=== PATIENT | female | born 1940 | race Caucasian/White ===

== ENCOUNTER → 2017-11-28 | Outpatient (CLI) | payer OTHER ==
[~2017-11-28] MED LIST: CIPR500 PO; CODACE30 PO; DOCU100 PO; GENUVIA PO; GLIM4 PO; HYDACE5 PO; METF500 PO; METR500 PO; ONDA4 PO; OXYACE5T PO; PROM25 PO
== END | disposition home or self-care (01) ==
LOC: LAB 14:15 → LAB SHORT 14:15
DX: L30.9 Dermatitis, unspecified (principal)
CPT/HCPCS: 87220

== ENCOUNTER → 2019-11-15 | Outpatient (CLI) | payer OTHER | END | disposition home or self-care (01) | LOC: LAB SRC 08:20 → LAB SHORT 08:20 | DX: E11.9 Type 2 diabetes mellitus without complications (principal) | CPT/HCPCS: 82043 ==

== ENCOUNTER → 2020-09-22 | Outpatient (CLI) | payer OTHER | END | disposition home or self-care (01) | LOC: LAB SRC 07:45 → LAB SHORT 07:45 → LAB 07:45 | DX: E11.9 Type 2 diabetes mellitus without complications (principal) | CPT/HCPCS: 82043 ==

== ENCOUNTER → 2022-10-21 | Outpatient (CLI) | payer OTHER | END | disposition home or self-care (01) | LOC: LAB SHORT 07:00 → LAB 07:00 | DX: E11.51 Type 2 diabetes mellitus with diabetic peripheral angiopathy without gangrene (principal); Z79.4 Long term (current) use of insulin | CPT/HCPCS: 82043 ==

== ENCOUNTER 2023-09-29 13:29 | Inpatient (IN) | payer OTHER ==
[~2023-09-29] VITALS: Ht 157.5 cm; Wt 56.3 kg
[2023-09-29] MEDS ORDERED: Ketamine HCl 100 MG / ML 5ML Vial IV ONE (14:20)
[2023-09-29] MEDS ORDERED: Propofol 10mg/ml 20 ml Vial (Procedural) IV SCH (14:20)
[2023-09-29] MEDS ORDERED: Ondansetron HCl 2 MG / ML 2ML Vial IV ONE (14:40)
[2023-09-29] MEDS ORDERED: NS 1,000 ML IV SCH ×2 (14:40→18:10)
[2023-09-29 14:46] LABS: BASOPHILS ABSOLUTE AUTO 0.05 K/mm3 (0.00-0.23); BASOPHILS PERCENT AUTO 0 % (0-2); EOSINOPHILS ABSOLUTE AUTO 0.07 K/mm3 (0.00-0.68); EOSINOPHILS PERCENT AUTO 1 % (0-6); Hemoglobin 13.7 g/dL (11.5-16.0); IMMATURE GRAN PERCENT AUTO 1 % (0-1); LYMPHOCYTES ABSOLUTE AUTO 1.18 K/mm3 (0.84-5.20); LYMPHOCYTES PERCENT AUTO 8 % (21-46); MONOCYTES ABSOLUTE AUTO 0.59 K/mm3 (0.16-1.47); MONOCYTES PERCENT AUTO 4 % (4-13); Mean Corpuscular HGB 28.6 pg (26.0-34.0); Mean Corpuscular HGB Conc 33.4 g/dL (31.5-36.5); Mean Corpuscular Volume 86 fL (80-100); Mean Platelet Volume 9.2 fL (9.1-12.4); NEUTROPHILS ABSOLUTE AUTO 13.49 K/mm3 (1.96-9.15); NEUTROPHILS PERCENT AUTO 87 % (41-73); Platelet Count 241 K/mm3 (150-400); RDW Coefficient Variation 15.4 % (11.7-14.2); RDW Standard Deviation 47.1 fL (35.1-46.3); Red Blood Cell Count 4.79 M/mm3 (3.80-5.20); White Blood Cell Count 15.48 K/mm3 (4.00-11.30)
[2023-09-29 15:06] LABS: Albumin, Blood 3.8 g/dL (3.4-5.0); Bilirubin, Total 0.5 mg/dL (0.1-1.0); Bun/Creatinine Ratio 23.1 (12.0-20.0); Calcium, Blood 10.8 mg/dL (8.5-10.1); Creatinine, Blood 0.87 mg/dL (0.40-1.00); Globulin, Blood 3.8 g/dL (2.2-4.0); Magnesium, Blood 1.7 mg/dL (1.6-2.4); Potassium, Blood 4.1 mmol/L (3.5-5.5); Total Protein, Blood 7.6 g/dL (6.4-8.2)
[2023-09-29] MEDS ORDERED: FentaNYL Citrate 50 MCG/ML 2 ML Injection IV ONE (15:15)
[2023-09-29 17:30] LABS: Source, Urine Clean Catch
[2023-09-29 17:34] LABS: Appearance, Urine Clear (Clear); Bilirubin, Urine Neg (Neg); Blood, Urine Neg (Neg); Color, Urine Yellow (P-Yellow); Glucose Qualitative, Urine Neg (Neg); Ketones, Urine Neg (Neg); Leukocyte Esterase, Urine Neg (Neg); Nitrite, Urine Neg (Neg); Protein, Urine Neg (Neg); Specific Gravity, Urine 1.025 (1.003-1.022); Urobilinogen, Urine NORM (Normal)
[2023-09-29] MEDS ORDERED: FentaNYL Citrate 50 MCG/ML 2 ML Injection IV PRN (18:05)
[2023-09-29] MEDS ORDERED: Ondansetron HCl 2 MG / ML 2ML Vial IV PRN (18:10)
[2023-09-29] MEDS ORDERED: Insulin Glargine-Yfgn 100 Unit/mL 3 ML SYR SC SCH (19:00)
[2023-09-29] MEDS ORDERED: Sennosides 8.6 MG Tab PO SCH (21:00)
[2023-09-29 21:32] VITALS: BP 137/72
[2023-09-29] MEDS ORDERED: TRESIBA FL100 UNIT/2 SC (21:36)
--- NOTE | 2023-09-29 22:27 | NUR ---
ARRIVAL PT NEW ADMIT FROM ER W/ L ANKLE FX. SPLINT IN PLACE, CAP REFILL <3 SECONDS AND PT REPORTS FULL SENSATION. CAN MOVE TOES ON COMMAND. PT REPORTS NO PAIN W/NO MOVEMENT BUT 8/10 PAIN W/ MOVEMENT. PT REPORTING L RIB PAIN, WHEN VISUALIZED LIGHT BRUISING NOTED BUT OTHERWISE NO ACUTE FINDINGS. PT REPORTS NOT HITTING HER HEAD BUT EXPERIENCED SYNCOPE. VSS, TELE READS SR 90'S. PT RESTING IN BED W/ WATER AVAILABLE. DENIES WANTING PAIN OR NAUSEA MEDICATION AT THIS TIME, PLAN TO BE NPO AT 0000.
--- NOTE | 2023-09-30 00:41 | NUR ---
PATIENT CONCERNS PATIENT REPORTS HAVING DIPTHERIA A YOUNG CHILD AND REPORTS ESOPHAGEAL ISSUES HER WHOLE LIFE, REPORTS CHOKING "REGULARLY". PT EXPRESSES SIGNIFIGANT ANXIETY OVER POSSIBLE INTUBATION TOMORROW. EDUCATED THE PT THAT THE ANESTHESIOLOGIST WOULD SPEAK WITH HER AND THAT I WOULD PASS THIS INFORMATION ONTO DAY SHIFT
[2023-09-30 02:34] VITALS: BP 149/81
--- NOTE | 2023-09-30 04:23 | NUR ---
SHIFT SUMMARY NO ACUTE EVENTS SINCE ARRIVING TO THE FLOOR, PT VOIDED ONCE INTO BRIEF D/T PUREWICK FAILURE. REQUIRING IV PAIN MEDICATION Q2. PT IS EXPERIENCING SIGNIFIGANT ANXIETY BUT FINDS COMFORT IN TALKING TO STAFF. PLEASENT AND COOPERATIVE. HAS BEEN NPO SINCE 0000 IN ANTICIPATION FOR SURGERY TODAY. CAP REFILL IS BRISK AND SENSATION REMAINS INTACT AT THIS TIME.
[2023-09-30 06:36] LABS: BASOPHILS ABSOLUTE AUTO 0.04 K/mm3 (0.00-0.23); BASOPHILS PERCENT AUTO 0 % (0-2); EOSINOPHILS ABSOLUTE AUTO 0.06 K/mm3 (0.00-0.68); EOSINOPHILS PERCENT AUTO 1 % (0-6); Hemoglobin 12.9 g/dL (11.5-16.0); IMMATURE GRAN ABSOLUTE AUTO 0.03 K/mm3 (0.00-0.10); IMMATURE GRAN PERCENT AUTO 0 % (0-1); LYMPHOCYTES ABSOLUTE AUTO 1.48 K/mm3 (0.84-5.20); LYMPHOCYTES PERCENT AUTO 13 % (21-46); MONOCYTES ABSOLUTE AUTO 0.74 K/mm3 (0.16-1.47); MONOCYTES PERCENT AUTO 7 % (4-13); Mean Corpuscular HGB 28.2 pg (26.0-34.0); Mean Corpuscular HGB Conc 33.1 g/dL (31.5-36.5); Mean Corpuscular Volume 85 fL (80-100); NEUTROPHILS ABSOLUTE AUTO 8.82 K/mm3 (1.96-9.15); NEUTROPHILS PERCENT AUTO 79 % (41-73); Platelet Count 228 K/mm3 (150-400); RDW Coefficient Variation 15.3 % (11.7-14.2); RDW Standard Deviation 47.3 fL (35.1-46.3); Red Blood Cell Count 4.57 M/mm3 (3.80-5.20); White Blood Cell Count 11.17 K/mm3 (4.00-11.30)
[2023-09-30 07:05] LABS: Bun/Creatinine Ratio 21.8 (12.0-20.0); Calcium, Blood 9.5 mg/dL (8.5-10.1); Creatinine, Blood 0.78 mg/dL (0.40-1.00); Potassium, Blood 4.3 mmol/L (3.5-5.5)
[2023-09-30 08:21] VITALS: BP 147/75
--- NOTE | 2023-09-30 13:31 | NUR ---
"Spiritual Care Visit | Pt. Request Pt. is awake in bed and welcomes my visit. Pt. is pleasant and Spouse Mitch is at bedside. Facilitate a life review and establish rapport. Listen with interest and engagement. Pt. displays evidence of having great scott, but is unsettled about the impact of medication for her planned operation on Tuesday. Prayed for the Pt. Pt. verbalized gratitude for the spiritual care visit and requested this assistant manager/embalmer to pray for her tomorrow during her procedure."
[2023-09-30 14:53] VITALS: BP 151/72
[2023-09-30] MEDS ORDERED: Insulin Human Lispro 100 Units/ML 3ML Syringe SC SCH ×2 (17:30)
--- NOTE | 2023-09-30 17:44 | NUR ---
SHIFT SUMMARY PT ADMITTED FOR L ANKLE FRACTURE. ANKLE REDUCED AND SPLINTED IN THE ED. MARCO ANTONIO WRAP TO L ANKLE IS CDI. PT WAS SUPPOSED TO HAVE SURGERY TODAY BUT IT HAS BEEN POSTPONED DUE TO NEEDING TO ORDER EQUIPMENT THAT IS COMPATIBLE WITH THE PT'S ALLERGIES. PT TREATED PER EMR FOR PAIN AND ON 2 LITERS O2/CONT. BIOX DUE TO DESATING WITH PAIN MEDICATION. PT IS BEDREST AND USING A PUREWICK. NPO AT MIDNIGHT FOR SURGERY TOMORROW.
--- NOTE | 2023-09-30 19:30 | NUR ---
DURING BEDSIDE REPORT I ATTEMPTED TO CHECK CIRCULATION TO PTS TOES SHE C/O INCREASED PAIN.PT UPSET,AND REFUSED ME TO CHECK. STATED I WAS NOT TO TOUCH HER LEG.I DISCUSSED RISKS WITH PT REGARDING INABILITY TO CONFIRM CIRCULATION. ADVISED SHE WOULD BE MEDICATED FOR PAIN, BUT NURSING WOULD STILL NEED TO CK CIRCULATION FOR SAFETY.PT INITIALLY REFUSED, BUT DID CHANGE MIND AND AGREE TO LET DAY RN AND THIS RN CHECK REFILL TO TOES.
[2023-09-30 19:42] VITALS: BP 148/69
--- NOTE | 2023-09-30 20:40 | NUR ---
BOILER WATER TESTER REPORTED PT C/O PAIN AND NAUSEA AT 2009. I MED PT FOR PAIN AT 2014, BUT PT REFUSED ZOFRAN.PT STATED SHE WAS "SICK" ,BUT VERB SHE DID NOT MEAN NAUSEA. PT C/O FEELING LIKE LEG HAD SWELLING.I OFFERED ICE IF PT WOULD ALLOW IT AND DISCUSSED REASONING,ALSO CONSIDERED ASKING FOR 1 TIME DOSE OF TORADOL WHILE I REVIEWED CREAT AND GFR, THEN ASKED PT ABOUT ANY ALLERGIES TO IBUPROFEN FOR SAFETY DUE TO PTS MULTIPLE ALLERGIES. PT REPORTED HAVING ALLERGY TO IBUPROFEN,WHICH WAS NOT ON ALLERGY LIST.PT STATED REACTION WAS "SEVERE" BUT COULD NOT VERB SPECIFIC REACTION.PT ALSO STATED SHE HAD MANY OTHERS, BUT COULD NOT REMEMBER THEM. PT GOING TO OR IN AM,I ATTEMPTED TO OBTAIN LIST FORM OTHER SOURCE.PT STATED HER MIGHT KNOW, BUT WE WERE UNABLE TO REACH HIM BY PHONE.I ASKED ABOUT PT PHARMACY AND PT STATED OUT OF TOWN PH[facility] AND NEWLY ESTABLISHING WITH JEY,I DISCUSSED THE SAFETY RISK OF NOT HAVING ACCURATE ALLERGY LIST FOR OR AND PT GOT UPSET,RAISING HER VOICE TELLING ME HER DOCTOR KNOWS HER LIST AND HE WILL BE DOING SURGERY. PT REFUSING TO TALK OF IT FURTHER,CALLED BOILER WATER TESTER TO ROOM FOR ASSIST IN CALMING PT.PT CONTINUED TO RAISE VOICE SAYING MY QUESTIONS HAVE "SCARED THE SHIT OUT OF " HER AND STATED SHE WOULD NOT ALLOW ME TO CANCEL HER SURGERY.BOILER WATER TESTER AND NURSE ATTEMPTED TO EXPLAIN TO PT HAD NO AUTHORITY TO CANCEL SURGERY AND WERE NOT ATTEMPTING TO, BUT NEEDED ALLERGIES FOR SAAFETY AND I WAS JUST DOING MY JOB. PT DEMANDED US TO LEAVE ROOM AND OBTAIN HER A REPLACEMENT NURSE AND THREATENED SHE WOULD BE CALLING HER NATUROPATHIC DOCTOR.WE LEFT ROOM AND CALLED NURSING MANAGING DIRECTOR ATLAS NASIR TO ROOM TO SPEAK WITH PT. BROOK MOREIRA ASSUMED CARE.
--- NOTE | 2023-09-30 21:00 | NUR ---
ASSUMPTION OF CARE. THIS RN ASSUMED CARE OF PT AT 2100. PT ANXIOUS AT THIS TIME AND THIS RN PROVIDED REASSURANCE AND THERAAPEUTIC COMMUNICATION. CALL LIGHT IN REACH.
[2023-10-01] VITALS (15 sets, daily range): BP systolic 141–166; BP diastolic 67–90
--- NOTE | 2023-10-01 08:02 | NUR ---
SHIFT SUMMARY NOC. PT TO HAVE SURGERY TODAY FOR L ANKLE FX REPAIR. SPLINT IN PLACE WITH MARCO ANTONIO WRAP. TOES WARM, CAP REFILL BRISK, AND PT ABLE TO WIGGLE TOES. PT VERY PAINFUL WITH MOVEMENT AND NEEDING PAIN MED Q 2 HOURS. PT MEDICATED FOR NAUSEA X1 WITH IMPROVEMENT, NO VOMITING EPISODES. PT REPORTS RELIEF WITH MEDICATION. DESAT NOTED WITH PAIN MEDS BUT RETURNS WITH O2 VIA NC AND COACHING FOR DEEP BREATHS. PT ANXIOUS AT START OF ASSUMPTION OF CARE BUT ANXIETY SIGNIFICANTLY IMPROVED WITH THERAPEUTIC COMMUNICATION AND RAPPORT BUILDING. PT VOIDING URINE VIA PUREWICK. PT DECLINED LONG ACTING BEDTIME INSULIN D/T NPO STATUS FOR SURGERY. PT NPO SINCE 0000. PT RESTED WITH EYES CLOSED AND CALL LIGHT IN REACH.
[2023-10-01] MEDS ORDERED: Bupivacaine 0.5% HCl 5 MG/ML 30MLVIAL ONE (08:43)
[2023-10-01] MEDS ORDERED: HYDROmorphone HCl/Pf 1MG SYR IV PRN (09:25)
[2023-10-01] MEDS ORDERED: FentaNYL Citrate 50 MCG/ML 2 ML Injection IV PRN (09:25)
[2023-10-01] MEDS ORDERED: Albuterol 2.5 MG/3 ML VIAL INH PRN (09:30)
[2023-10-01] MEDS ORDERED: Droperidol 5 mg/2 ml Vial IV PRN (09:30)
[2023-10-01] MEDS ORDERED: propofoL 20 ML IV ONE (10:00)
[2023-10-01] MEDS ORDERED: FentaNYL Citrate 50 MCG/ML 2 ML Injection ONE ×2 (10:00→11:08)
[2023-10-01] MEDS ORDERED: Lidocaine HCl 2% 20 ML MDV ONE (10:01)
[2023-10-01] MEDS ORDERED: Dexamethasone Sod Phos 10 MG/ML 1ML VIAL ONE (10:16)
[2023-10-01] MEDS ORDERED: Ondansetron HCl 2 MG / ML 2ML Vial ONE (10:16)
[2023-10-01] MEDS ORDERED: Ketorolac Tromethamine 30mg Vial ONE (10:16)
[2023-10-01] MEDS ORDERED: CeFAZolin Sodium 1000 mg Vial ONE (10:24)
--- NOTE | 2023-10-01 10:43 | NUR ---
10/01/23 1043 Sachin Humphrey 2GRAMS IV GIVEN TO PT BY DR RODRIGUEZ.
[2023-10-01] MEDS ORDERED: Droperidol 5 mg/2 ml Vial ONE (11:44)
--- NOTE | 2023-10-01 12:27 | NUR ---
PT ARRIVED BACK TO ROOM FROM PACU AT 1205. PT SLEEPING BUT WAKES WHEN SPOKEN TO. PT ON 4L O2 VIA NC. PT BRIEFLY REMOVED OXYGEN WHEN STAFF WAS OUT OF THE ROOM. WHILE ON RA O2 SATURATION DROPPED TO 76%. PT IS ON A CONTINUOUS PULSE OXIMETER. FABIANA BERMUDEZ PLACED NASAL CANNULA BACK ON PT, WOKE HER, INSTRUCTED HER TO BREATHE DEEPLY AND NOTIFIED THIS RN. PT'S O2 SATURATION RETURNED TO 94-96% AFTER PT WAS PLACED BACK ON 4L 02. CALL LIGHT WITHIN REACH. BED ALARM ON.
[2023-10-01] MEDS ORDERED: OxyCODONE HCL 5 MG TAB PO PRN (14:55)
[2023-10-01] MEDS ORDERED: DiphenhydrAMINE HCL 25 MG Cap PO PRN (14:55)
[2023-10-01] MEDS ORDERED: Acetaminophen 325 MG TABLET PO PRN (14:55)
--- NOTE | 2023-10-01 16:51 | NUR ---
SHIFT SUMMARY PT IS POD#0 FROM L ANKLE REPAIR WITH DR. CHANDLER. PER HIV COUNSELOR PT HAD LOCAL ANESTHESIA, PAIN MANAGED. PT IS ABLE TO WIGGLE HER TOES. PT REMAINS ON 4LO2 VIA NC. DEEP BREATHING AND COUGHIN ENCOURAGED. PT USES CALL LIGHT APPROPRIATELY. PT'S IS AT THE BEDSIDE FOR SUPPORT.
[2023-10-02 03:50] LABS: BASOPHILS ABSOLUTE AUTO 0.03 K/mm3 (0.00-0.23); BASOPHILS PERCENT AUTO 0 % (0-2); EOSINOPHILS ABSOLUTE AUTO 0.02 K/mm3 (0.00-0.68); EOSINOPHILS PERCENT AUTO 0 % (0-6); Hemoglobin 12.4 g/dL (11.5-16.0); IMMATURE GRAN ABSOLUTE AUTO 0.07 K/mm3 (0.00-0.10); IMMATURE GRAN PERCENT AUTO 1 % (0-1); LYMPHOCYTES ABSOLUTE AUTO 1.74 K/mm3 (0.84-5.20); LYMPHOCYTES PERCENT AUTO 14 % (21-46); MONOCYTES ABSOLUTE AUTO 0.87 K/mm3 (0.16-1.47); MONOCYTES PERCENT AUTO 7 % (4-13); Mean Corpuscular HGB 28.5 pg (26.0-34.0); Mean Corpuscular HGB Conc 32.6 g/dL (31.5-36.5); Mean Corpuscular Volume 87 fL (80-100); Mean Platelet Volume 9.3 fL (9.1-12.4); NEUTROPHILS ABSOLUTE AUTO 9.75 K/mm3 (1.96-9.15); NEUTROPHILS PERCENT AUTO 78 % (41-73); Platelet Count 203 K/mm3 (150-400); RDW Standard Deviation 48.1 fL (35.1-46.3); Red Blood Cell Count 4.35 M/mm3 (3.80-5.20); White Blood Cell Count 12.48 K/mm3 (4.00-11.30)
[2023-10-02 04:10] LABS: Bun/Creatinine Ratio 21.8 (12.0-20.0); Calcium, Blood 8.6 mg/dL (8.5-10.1); Creatinine, Blood 0.73 mg/dL (0.40-1.00); Potassium, Blood 4.4 mmol/L (3.5-5.5)
[2023-10-02 05:36] VITALS: BP 142/72
[2023-10-02 07:23] VITALS: BP 143/71
--- NOTE | 2023-10-02 07:46 | NUR ---
SHIFT SUMMARY NOC. PT POD 1 FOR ORIF OF L ANKLE. SPLINT C/D/I. PT TITRATED DOWN TO 2 LITERS VIA N/C. TELEMETRY STATUS IN NSR IN 80S. PT HAD NO PAIN UNTIL LOCAL NERVE BLOCK WORE OFF AROUND 3AM. PT REPORTED 10/10 PAIN OXY 5MG GIVEN. PT STATED IT MADE HER FEEL "FUZZY HEADED AND DRUG OUT" PT REQUESTS TO TRIAL 2.5 MG IN FUTURE. RELAYED INFO TO ONCOMING DAY SHIFT RN. PT VOIDING URINE. PT RESTED WITH EYES CLOSED AND CALL LIGHT IN REACH.
[2023-10-02 15:21] VITALS: BP 141/73
--- NOTE | 2023-10-02 16:31 | NUR ---
SPOKE WITH DR. TALAMANTES REGARDING NEED FOR BLOOD THINNER. LOVENOX ORDERED PER DR. TALAMANTES.
[2023-10-02 19:37] VITALS: BP 144/63
--- NOTE | 2023-10-02 19:55 | NUR ---
SHIFT SUMMARY PT IS POD#1 FROM L ANKLE ORIF. PAIN MANAGED WITH OXY AND TYLENOL, ICE HAS ALSO BEEN HEPLFUL. PT IS A 1-2 ASSSIT WITH TRANSFERS. PT HAS SOME DIFFICULTY MAINTAINING WB STATUS. PT REMAINS ON OXYGEN, UNABLE TO WEAN LOWER THAN 2L, PT EDUCATED TO USE INCENTIVE SPIROMETER. BEDSIDE REPORT GIVEN TO LOU MOREIRA.
[2023-10-03 03:14] VITALS: BP 165/72
[2023-10-03 07:17] VITALS: BP 166/71
--- NOTE | 2023-10-03 07:26 | NUR ---
POD 3 S/P ORIF OF L ANKLE. PT VSS T/O NIGHT; SATS >90% ON 2L O2NC. DRESSING CDI; PEDAL PULSES AND CAP REFILL WNL, PT DENIED N/T. PAIN MGD W/2.5MG OXYCODONE (PER PT REQ, STATES 5MG "WAY TOO STRONG") + TYLENOL. PT DENIED PAIN AT REST, IS PAINFUL W/MVMT. PT NEEDING EXTENSIVE EDUCATION R/T PAIN MGMT R/T MEDICATIONS, REPOSITIONING AND PHYSIOLOGY. PT MINIMALLY RECEPTIVE. PT USING PUREWICK W/O DIFFICULTY. PT REPOSITIONING SELF IN BED, IS USING CALL LIGHT FOR ASSISTANCE. PLAN TO MOBILIZE W/PT AND AWAIT DC PLANNING.
--- NOTE | 2023-10-03 09:33 | NUR ---
ROOM AIR TRIAL 02 REMOVED & PT O2 LEVELS DECREASED TO 81%. 2L NC REPLACED & O2 SATS INCREASED TO 95%. ENCOURAGED DEEP BREATHING.
[2023-10-03] MEDS ORDERED: OxyCODONE HCL 5 MG TAB PO PRN (11:10)
[2023-10-03] MEDS ORDERED: Acetaminophen 500 MG Tab PO PRN (11:10)
[2023-10-03] MEDS ORDERED: Meclizine HCl 25 MG Tab PO PRN (11:50)
[2023-10-03 15:58] VITALS: BP 137/67
--- NOTE | 2023-10-03 18:29 | NUR ---
SHIFT SUMMARY PATIENT POD 2. WORKED WITH PT THIS MORNING AND WAS ABLE TO SIT IN CHAIR FOR MOST OF THE DAY. MOVED FROM CHAIR TO COMMODE TO BED WITH TWO PERSON ASSIST. PATIENT STATED THAT SHE WAS FEELING VERY DIZZY. NOTIFIED DOCTOR AND MEDICATIONS GIVEN TO PT FOR THIS. REPORTS NO DIZZINESS AFTER MED ADMINISTERED. VSS. LEFT ANKLE IS WRAPPED IN MARCO ANTONIO BANDAGE WITH SPLINT AND CAST PADDING. WIGGLES TOES, FEELS SENSATION BELOW INCISION, CAP REFILL <3 SECONDS. LEG HAS BEEN KEPT ELEVATED ON PILLOW. PAIN IS MANAGED PER EMAR. DISCHARGE HOME PLANNED FOR TOMORROW.
[2023-10-03 19:23] VITALS: BP 156/67
[2023-10-03] MEDS ORDERED: Enoxaparin 40 MG/0.4 ML SYR SC SCH (21:00)
[2023-10-04 03:18] VITALS: BP 157/77
--- NOTE | 2023-10-04 04:29 | NUR ---
SHIFT SUMMARY PT RESTED WELL T/O NOC. VSS. REPOSITIONING PRN. LEFT LEG DRESSING REMAINS CDI AND ELEVATED ON PILLOWS. 1/2 TAB OF ROXICODONE FOR PAIN MANAGEMENT. USES PUREWICK PRN TO VOID. ON 2L VIA NC TO MAINTAIN SATS >94%. TRIALED ROOM AIR, BUT PT DESATTED TO LOW 80S. ENCOURAGING DEEP BREATHING. USES CALL LIGHT APPROPRIATELY.
[2023-10-04 07:24] VITALS: BP 155/76
[2023-10-04 11:21] VITALS: BP 131/67
--- NOTE | 2023-10-04 11:23 | NUR ---
PATIENT WAS ON THE BEDSIDE COMMODE AND COMPLAINED OF DIZZINESS. VAGEL MANEUVER R/T BOWEL MOVEMENT. BECAME SLUGGISH TO RESPOND TO QUESTIONS. THREE PERSON ASSIST BACK TO BED. SHE RECALLS THE EVENT AND IS ABLE TO ANSWER QUESTIONS NOW THAT SHE IS RESTING IN BED.
[2023-10-04] MEDS ORDERED: Docusate Sodium 100 MG Cap PO ONE (11:50)
--- NOTE | 2023-10-04 14:29 | NUR ---
Pt. is awake in bed and welcomes my visit. After requainting ourselves, I facilitated an update of the Pts. understanding of her condition and prognosis. Listen with interest and empathy. Pt. displays evidence of an attitude of hope. Considered matters of the Pts. personal scott and belief. Pt. displayed evidence of having been very encouraged by the spiritual care visit. Prayed with Pt. Pt. verbalized gratitude for the visit and welcomed this oil inspector to return.
[2023-10-04] MEDS ORDERED: ACET500 PO (15:23)
[2023-10-04] MEDS ORDERED: BENADRYL25 MG PO (15:23)
[2023-10-04] MEDS ORDERED: DOCU100 PO (15:23)
[2023-10-04] MEDS ORDERED: MECL12.5 PO (15:24)
[2023-10-04] MEDS ORDERED: SENN187 PO (15:25)
[2023-10-04] MEDS ORDERED: OXYC5 PO (15:25)
--- NOTE | 2023-10-04 16:54 | NUR ---
DISCHARGE NOTE PT LEFT VIA WHEELCHAIR. TRANSPORTATION WAS ARRANGED AND WAITING TO TAKE HER HOME. AMBULATED FROM BED TO WHEELCHAIR WITH ONE PERSON ASSIST, TOLERATED WELL. LEFT WITH ALL BELONGINGS, VSS, A&O X4. PT REPORTS NO N/V, DIZZINESS, OR N/T. OXYGEN DELIVERED AND SENT HOME WITH BELONGINGS. PT AND SPOUSE VERY EXCITED FOR DISCHARGE.
[2023-10-04] MEDS ORDERED: Docusate Sodium 100 MG Cap PO SCH (21:00)
== END 2023-10-04 17:05 | disposition home health service (06) | DRG 492 ==
LOC: ER 13:29 → SURS 18:04 → MEDS 18:04 → SURS 21:10
PROVIDERS: Nurse Practitioner Acute Care; Podiatrist Foot & Ankle Surgery; Student in an Organized Health Care Education/Training Program; ADMIT Internal Medicine
PROC: 0QSKXZZ Reposition Left Fibula, External Approach (ICD-10-PCS; 2023-09-29)
PROC: 0QSHXZZ Reposition Left Tibia, External Approach (ICD-10-PCS; 2023-09-29)
PROC: 0QSH04Z Reposition Left Tibia with Internal Fixation Device, Open Approach (ICD-10-PCS; 2023-10-01)
PROC: 0QSK04Z Reposition Left Fibula with Internal Fixation Device, Open Approach (ICD-10-PCS; principal; 2023-10-01 09:00)
DX: S82.852A Displaced trimalleolar fracture of left lower leg, initial encounter for closed fracture (principal); J96.01 Acute respiratory failure with hypoxia; D72.829 Elevated white blood cell count, unspecified; E11.65 Type 2 diabetes mellitus with hyperglycemia; R55 Syncope and collapse; E86.1 Hypovolemia; W01.0XXA Fall on same level from slipping, tripping and stumbling without subsequent striking against object, initial encounter; Y92.002 Bathroom of unspecified non-institutional (private) residence as the place of occurrence of the external cause; Z88.0 Allergy status to penicillin; Z88.8 Allergy status to other drugs, medicaments and biological substances
CPT/HCPCS: 27818; 36415; 71046; 73600; 73610; 76000; 78580; 80048; 80053; 81003; 82947; 83735; 84484; 85025; 93005; 93010; 94762; 96374-59; 96375-59; 97110; 97161; 97530; 99285-25; A9270; A9540; J0690; J1100; J1650; J1790; J1815; J1885; J2405; J2704; J3010; J7030

== ENCOUNTER → 2024-03-19 | Outpatient (CLI) | payer OTHER ==
[~2024-03-19] MED LIST changes: +ACET500 PO; +BENADRYL25 MG PO; +MECL12.5 PO; +OXYC5 PO; +SENN187 PO; +TRESIBA FL100 UNIT/2 SC
== END ==
LOC: LAB SHORT 09:00 → LAB 09:00
DX: E11.51 Type 2 diabetes mellitus with diabetic peripheral angiopathy without gangrene (principal); Z79.4 Long term (current) use of insulin
CPT/HCPCS: 82043